=== PATIENT | female | born 1995 | race Caucasian/White ===

== ENCOUNTER → 2016-06-03 | Outpatient (CLI) | payer BC ==
--- NOTE | 2016-06-03 15:08 | Diagnostic Imaging Report ---
INDICATION: Dysmenorrhea. COMPARISON: None. DISCUSSION: Transabdominal and transvaginal sonographic evaluation of the pelvis was performed. The uterus is normal in echotexture and size measuring 8.0 x 5.4 x 4.0 cm. Normal endometrial thickness measuring 0.2 cm. The ovaries appear normal in echotexture and size bilaterally with normal color Doppler blood flow. The right ovary measures 2.5 x 1.7 x 2.3 cm. The left ovary measures 2.7 x 2.3 x 1.9 cm. No abnormal adnexal mass or fluid. IMPRESSION: 1. Unremarkable pelvic ultrasound. Dictated by: Dictated on workstation # [id number]
== END ==
LOC: RAD 14:18
PROVIDERS: ATTEND Nurse Practitioner
DX: N93.8 Other specified abnormal uterine and vaginal bleeding (principal)
CPT/HCPCS: 76830; 76856

== ENCOUNTER → 2018-09-04 | Outpatient (CLI) | payer OTHER ==
--- NOTE | 2018-09-04 08:49 | Diagnostic Imaging Report ---
PROCEDURE: US Gallbladder. TECHNIQUE: Multiple real-time grayscale images were obtained over the right upper quadrant in various projections. INDICATION: Recurrent nausea and vomiting and abdominal pain. Liver is normal in size at 14.6 cm. No discrete liver mass is identified. The portal vein is patent and shows normal direction of flow. Gallbladder is without stones or sludge. No wall thickening or biliary duct dilatation is seen. Visualized pancreas is unremarkable. Right kidney is without evidence of calculi or hydronephrosis. There is no ascites. IMPRESSION: Unremarkable gallbladder ultrasound. Dictated by: Dictated on workstation # [id number]
== END ==
LOC: RAD 06:59
PROVIDERS: ATTEND Nurse Practitioner Family
DX: R11.2 Nausea with vomiting, unspecified (principal); R10.84 Generalized abdominal pain
CPT/HCPCS: 76705

== ENCOUNTER → 2018-09-24 | Outpatient (CLI) | payer OTHER ==
[~2018-09-24] MED LIST: CATHETER FLUSH 10 ML SYR IV PRN
--- NOTE | 2018-09-24 10:30 | Diagnostic Imaging Report ---
CLINICAL INDICATION: Patient nausea, colic and abdominal pain. COMPARISON: Gallbladder ultrasound dated 09/04/2018. Procedure: The patient was administered 5.5 millicuries of technetium 99m Choletec. After 60 minutes of the images, one can of Ensure was drink followed by another 60 minutes of imaging. A nuclear medicine hepatobiliary scan with ejection fraction was performed. FINDINGS: There is prompt uptake and excretion of radiotracer by the liver. Activity is visible in the gallbladder by 10 minutes and the small bowel by 25 minutes. Ejection fraction of the gallbladder is calculated at 69% (normal >33%). The gallbladder visibly empties on the scans following the ingestion of Ensure. IMPRESSION: Normal hepatobiliary scan with normal gallbladder ejection fraction. Dictated by: Dictated on workstation # [id number]
== END ==
LOC: CARD 07:30
PROVIDERS: ATTEND Nurse Practitioner Family
DX: R10.84 Generalized abdominal pain (principal); R11.2 Nausea with vomiting, unspecified
CPT/HCPCS: 78227

== ENCOUNTER → 2019-01-01 | Outpatient (CLI) | payer OTHER ==
--- NOTE | 2019-01-01 11:16 | Diagnostic Imaging Report ---
PROCEDURE: US Thyroid. TECHNIQUE: Multiple real-time grayscale images were obtained of the thyroid in various projections. INDICATION: Abnormal thyroid labs. FINDINGS: Right lobe of the thyroid measures 4.8 x 1.1 x 1.7 cm and the left lobe measures 4.3 x 0.9 x 1.5 cm. Both lobes of thyroid are somewhat heterogeneous but no discrete thyroid mass is detected. Isthmus is 2 mm in thickness. IMPRESSION: Thyroid heterogeneity. No discrete thyroid mass is detected. Dictated by: Dictated on workstation # [id number]
== END ==
LOC: RAD 08:51
PROVIDERS: ATTEND Family Medicine
DX: E07.89 Other specified disorders of thyroid (principal); R94.6 Abnormal results of thyroid function studies
CPT/HCPCS: 76536

== ENCOUNTER → 2019-05-27 | Outpatient (CLI) | payer OTHER ==
[2019-05-27 15:18] LABS: BASOPHILS % (AUTO) 1 % (0-10); EOSINOPHILS % (AUTO) 1 % (0-10); HEMATOCRIT 41 % (35-52); HEMOGLOBIN 13.3 G/DL (11.5-16.0); LYMPHOCYTES % (AUTO) 25 % (12-44); MEAN CORPUSCULAR HEMOGLOBIN 27 PG (25-34); MEAN CORPUSCULAR HGB CONC 32 G/DL (32-36); MEAN CORPUSCULAR VOLUME 85 FL (80-99); MEAN PLATELET VOLUME 9.4 FL (7.4-10.4); MONOCYTES % (AUTO) 9 % (0-12); NEUTROPHILS # (AUTO) 8.4 X 10^3 (1.8-7.8); NEUTROPHILS % (AUTO) 64 % (42-75); PLATELET COUNT 432 10^3/uL (130-400); RED CELL DISTRIBUTION WIDTH 14.7 % (10.0-14.5); WHITE BLOOD COUNT 13.1 10^3/uL (4.3-11.0)
[2019-05-27 15:19] LABS: BASOPHILS # (AUTO) 0.1 10^3/uL (0.0-0.1); EOSINOPHILS # (AUTO) 0.2 10^3/uL (0.0-0.3); LYMPHOCYTES # (AUTO) 3.3 X 10^3 (1.0-4.0); MONOCYTES # (AUTO) 1.2 X 10^3 (0.0-1.0)
[2019-05-27 16:03] LABS: ALBUMIN 4.4 GM/DL (3.2-4.5); CHLORIDE 107 MMOL/L (98-107); POTASSIUM 3.9 MMOL/L (3.6-5.0); SODIUM 138 MMOL/L (135-145)
[2019-05-27 16:04] LABS: CALCIUM 8.8 MG/DL (8.5-10.1)
[2019-05-27 16:05] LABS: GLUCOSE 97 MG/DL (70-105); TOTAL PROTEIN 7.4 GM/DL (6.4-8.2)
[2019-05-27 16:06] LABS: CARBON DIOXIDE 21 MMOL/L (21-32)
[2019-05-27 16:07] LABS: BILIRUBIN,TOTAL 0.3 MG/DL (0.1-1.0)
[2019-05-27 16:09] LABS: ALKALINE PHOSPHATASE 106 U/L (40-136); CREATININE SERUM 0.72 MG/DL (0.60-1.30); GFR ESTIMATED > 60
[2019-05-27 16:10] LABS: BUN/CREATININE RATIO 11
[2019-05-27 16:12] LABS: ALANINE AMINOTRANSFERASE 13 U/L (0-55)
== END ==
LOC: LAB 14:57
PROVIDERS: ATTEND Nurse Practitioner Family
DX: R06.02 Shortness of breath (principal); L70.9 Acne, unspecified; F41.9 Anxiety disorder, unspecified; E53.8 Deficiency of other specified B group vitamins; N92.6 Irregular menstruation, unspecified; D50.8 Other iron deficiency anemias; E55.9 Vitamin D deficiency, unspecified; R79.89 Other specified abnormal findings of blood chemistry
CPT/HCPCS: 36415; 80053; 85025; 86738; 87430; 87635; 87804

== ENCOUNTER → 2019-05-27 | Outpatient (CLI) | payer OTHER | LOC: LABNPT 14:55 | PROVIDERS: ATTEND Family Medicine | DX: Z53.9 Procedure and treatment not carried out, unspecified reason (principal) ==

== ENCOUNTER → 2019-05-27 | Outpatient (CLI) | payer OTHER | LOC: LABNPT 13:20 | PROVIDERS: ATTEND Family Medicine | DX: R05 Cough (principal); R53.83 Other fatigue; R68.83 Chills (without fever); R07.81 Pleurodynia; R59.0 Localized enlarged lymph nodes | CPT/HCPCS: 87430; 87635; 87804 ==

== ENCOUNTER → 2020-06-26 | Outpatient (CLI) | payer OTHER ==
--- NOTE | 2020-06-26 09:41 | Diagnostic Imaging Report ---
INDICATION: Right foot injury. Patient has history of right 5th metatarsal fracture 1 year earlier. No prior studies are available for comparison. There appears to be an old healed fracture of the 5th metatarsal. No acute fracture is seen. Midfoot and hindfoot are unremarkable. Phalanges are intact. IMPRESSION: No acute bony abnormality is detected. Dictated by: Dictated on workstation # [id number]
== END ==
LOC: RAD 09:07
PROVIDERS: ATTEND Nurse Practitioner Family
DX: S99.921A Unspecified injury of right foot, initial encounter (principal); X58.XXXA Exposure to other specified factors, initial encounter
CPT/HCPCS: 73630

== ENCOUNTER → 2020-08-01 | Outpatient (CLI) | payer OTHER ==
--- NOTE | 2020-08-01 11:56 | Diagnostic Imaging Report ---
EXAMINATION: US Abdomen complete. TECHNIQUE: Multiple real-time grayscale images were obtained over the right upper quadrant in various projections. HISTORY: Abdominal Pain. COMPARISON: None available. FINDINGS: Pancreas: The visualized portions of the pancreas are normal. Liver: The liver is normal in echogenicity and contour. No focal lesions are seen. The portal vein is patent with hepatopetal flow. Gallbladder and biliary tree: Gallbladder is normal without wall thickening, pericholecystic fluid, or sonographic Guerra sign. There is no biliary ductal dilation. The common duct measures 0.5 cm. Kidneys: The right kidney is normal without hydronephrosis. The left kidney is normal without hydronephrosis. Spleen: The spleen is normal. Aorta and IVC: The visualized aorta and inferior vena cava are normal. Fluid: No ascites is seen. IMPRESSION: 1. Unremarkable abdominal ultrasound. Dictated by: Dictated on workstation # [id number]
--- NOTE | 2020-08-01 18:14 | Diagnostic Imaging Report ---
PROCEDURE: US PELVIC (NON OB) TECHNIQUE: Multiple real-time grayscale images were obtained over the pelvis in various projections transabdominally. INDICATION: Pelvic pain with heavy periods. COMPARISON: Pelvic ultrasound of 06/03/2016 FINDINGS: The uterus measures 9.9 x 4.4 x 5.3 cm. The myometrium is normal in echogenicity without discrete mass. The endometrium measures up to 0.4 cm where visualized, and is normal in echogenicity. The right ovary measures 2.9 x 2.2 x 1.7 cm. The left ovary measures 5.5 x 4.8 x 5.8 cm. Both ovaries are physiologic in appearance, and on the left, there is a 4.3 x 4.2 x 4.9 cm anechoic cyst present. Blood flow is seen in both ovaries on color doppler imaging. No suspicious adnexal mass or fluid collection. No free pelvic fluid. IMPRESSION: 1. In the left ovary, there is a 4.9 cm anechoic cystic structure that is most likely a dominant follicle. 2. Normal appearance of the uterus and endometrium. Dictated by: Dictated on workstation # [id number]
== END ==
LOC: RAD 08:55
PROVIDERS: ATTEND Nurse Practitioner Family
DX: N83.202 Unspecified ovarian cyst, left side (principal)
CPT/HCPCS: 76700; 76856

== ENCOUNTER → 2020-10-10 | Outpatient (CLI) | payer OTHER ==
--- NOTE | 2020-10-10 12:00 | Diagnostic Imaging Report ---
PROCEDURE: US Non-ob pelvis comp/trans. TECHNIQUE: Multiple realtime grayscale images were obtained of the pelvis in various projections endovaginally. Transabdominal imaging was also performed. INDICATION: Endometriosis, pelvic pain. COMPARISON: 08/01/2020. FINDINGS: The uterus measures 8 x 4.7 x 5.3 cm and appears grossly unremarkable. The endometrium is nonthickened at 7 mm. The right ovary measures 2.7 x 2.3 x 1.7 cm. There is a collapsing 11 mm follicle on the right ovary. Small amount of free fluid is in the cul-de-sac. The left ovary measures 3 x 1.2 x 2.8 cm. There is no mass or torsion. The adnexa are grossly normal. IMPRESSION: Physiologic free fluid in the cul-de-sac with involuting follicle right ovary. Otherwise unremarkable pelvic sonogram. Dictated by: Dictated on workstation # [id number]
== END ==
LOC: RAD 09:34
PROVIDERS: ATTEND Nurse Practitioner Family
DX: N80.9 Endometriosis, unspecified (principal)
CPT/HCPCS: 76830; 76856

== ENCOUNTER 2020-11-14 05:28 | Outpatient (CLI) | payer OTHER ==
[~2020-11-14] VITALS: Ht 162.6 cm; Wt 86.1 kg
[2020-11-14] MEDS ORDERED: MULT-1136 PO (09:45)
[2020-11-14] MEDS ORDERED: ERGO1250 PO (09:45)
[2020-11-14] MEDS ORDERED: NORE5TAB2 PO (09:45)
[2020-11-14] MEDS ORDERED: LEVO25CA4 PO (09:45)
[2020-11-14] MEDS ORDERED: LORA-1025 PO (09:45)
== END 2020-11-14 11:09 | disposition home or self-care (01) ==
LOC: PREOP 05:28
PROVIDERS: ATTEND Obstetrics & Gynecology
DX: Z01.818 Encounter for other preprocedural examination (principal)

== ENCOUNTER 2020-11-21 07:34 | Day surgery (SDC) | payer OTHER ==
[~2020-11-21] VITALS: Ht 162.6 cm; Wt 95.3 kg
[2020-11-21] VITALS (10 sets, daily range): BP systolic 90–117; BP diastolic 52–69
[~2020-11-21 07:34] MED LIST changes: -CATHETER FLUSH 10 ML SYR IV PRN; +ERGO1250 PO; +LEVO25CA4 PO; +LORA-1025 PO; +MULT-1136 PO; +NORE5TAB2 PO
[2020-11-21] MEDS ORDERED: BUPIVACAINE 0.25% 30 ML (SENSORCAINE) VIAL ONE (08:04)
[2020-11-21] MEDS ORDERED: LIDOCAINE/EPI 1%-1:100,000 (XYLOCAINE) 20ML ONE (08:08)
[2020-11-21] MEDS ORDERED: LIDOCAINE PF 2% 5 ML (XYLOCAINE) VIAL ONE (08:09)
[2020-11-21] MEDS ORDERED: NEOSTIGMINE 3 MG/3 ML VIAL ONE (08:09)
[2020-11-21] MEDS ORDERED: GLYCOPYRROLATE 0.2 MG/ML (ROBINUL) 2 ML VIAL ONE (08:09)
[2020-11-21] MEDS ORDERED: proPOfol 200 MG/20 ML (DIPRIVAN) VIAL IV ONE (08:09)
[2020-11-21] MEDS ORDERED: ONDANSETRON 4 MG/2 ML (SDV) Z0FRAN ONE (08:09)
[2020-11-21] MEDS ORDERED: MIDAZOLAM 2 MG/2 ML (VERSED) VIAL ONE (08:09)
[2020-11-21] MEDS ORDERED: fentaNYL INJ 100 MCG/2 ML AMP ONE (08:09)
[2020-11-21] MEDS ORDERED: ROCURONIUM 10 MG/ML 5 ML SYRINGE IV ONE (08:09)
[2020-11-21 08:12] LABS: CLARITY,URINE CLEAR; COLOR,URINE YELLOW; GLUCOSE, URINE (UA) NEGATIVE (NEGATIVE); KETONES,URINE NEGATIVE (NEGATIVE); LEUKOCYTE ESTERASE ,URINE NEGATIVE (NEGATIVE); NITRITE,URINE NEGATIVE (NEGATIVE); PROTEIN,URINE 1+ (NEGATIVE)
--- NOTE | 2020-11-21 08:12 | History & Physical-Surgical ---
HPO-Surgical History of Present Illness Chief Complaint: treatment. chronic pelvic pain, R ovarian cyst, endometriois Long history of chronic pelvic pain. Not resolved with combiniation hormonal manipulation. Some relief with progesterone, but doesn't desire fertility and desires definitive treatment. Diagnosis/Surgical Indication: CHRONIC PELVIC PAIN, ENDOMETRIOSIS Procedure: RATH, BILATERAL SALPINGECTOMY, OVARIAN CYSTECTOMY, RESECTION OF ENDOMETRIOSIS, POSSIBLE APPENDECTOMY, OTHER INDICATED PROCEDURES Date of Surgery: Nov 21, 2020 Weight (Pounds): 210 Height (Feet): 5 Height (Inches): 4 Allergies and Home Medications Allergies Coded Allergies: Penicillins (Unverified Allergy, Intermediate, 11/14/20) PT. STATES SHE GETS GASTROINTESTINAL ISSUES Patient Home Medication List Home Medication List Reviewed: Yes Ergocalciferol (Vitamin D2) (Vitamin D2) 1,250 Mcg Capsule, 1,250 MCG PO DAILY, (Reported) Entered as Reported by: CLIVE SUMNER on 11/14/20 09 Levothyroxine Sodium (Levothyroxine) 25 Mcg Capsule, 25 MCG PO DAILY, (Reported) Entered as Reported by: CLIVE SUMNER on 11/14/20 0945 Loratadine (Allergy Relief) 10 Mg Tablet, 10 MG PO DAILY PRN, (Reported) Entered as Reported by: CLIVE SUMNER on 11/14/20 09 Multivitamin (Multivitamin) 1 Each Tablet, 1 EACH PO DAILY, (Reported) Entered as Reported by: CLIVE SUMNER on 11/14/20944 Norethindrone Acetate (Aygestin) 5 Mg Tablet, 5 MG PO DAILY, (Reported) Entered as Reported by: CLIVE SUMNER on 11/14/20 09 Past Dkqqyxa-Kljwjd-Bosviy Hx Patient Social History Marrital Status: domestic partnership Number of Children: 0 Employed/Student: employed Smoking Status: Former Smoker 2nd Hand Smoke Exposure: No Recent Hopitalizations: No Social History no male partners Have you traveled recently?: No Alcohol Use?: No Seasonal Allergies Seasonal Allergies: Yes (USES OTC ALLERGY MEDICATION) Surgeries Yes (LEFT SHOULDER SURGERY) Orthopedic Respiratory No Cardiovascular No Neurological Yes (HISTORY OF MIGRAINES) Headaches /Migraines Reproductive System : No Hx Reproductive Disorders: Yes (endometriosis) Sexually Transmitted Disease: No HIV/AIDS: No Female Reproductive Disorders: Endometriosis, Ovarian Cyst Genitourinary Yes ( A CHILD) UTI-Chronic Gastrointestinal Yes Gastroesophageal Reflux Musculoskeletal No Endocrine History of Endocrine Disorders: Yes Endocrine Disorders: Hypothyroidsim HEENT History of HEENT Disorders: Yes (WEARS CONTACTS & GLASSES) Hearing Impairment: Denies Cancer No Psychosocial History of Psychiatric Problem: Yes Behavioral Health Disorders: Anxiety, Depression Integumentary History of Skin or Integumenta: No Blood Transfusions History of Blood Disorders: No Adverse Reaction to a Blood Tr: No (N/A) Exam Vital Signs Capillary Refill : General Appearance: Alert HEENT: Atraumatic Respiratory: Clear to Auscultation, Normal Air Movement Abdominal: Other (pelvic exam deferred to surgery) Assessment/Plan Assessment and Plan 1. Chronic pelvic pain 2. Endometriosis 3. possible right ovarian cyst (evidence of rupture of previous cyst on US) Plan - medical control has been somewhat satisfactory, but not complete and patient desires definitive treatment. Will plan RaTH, bilateral salpingectomy, ovarian cystectomy, resection of endometriosis, possible appendectomy, OIP on 11/21/2020 Risks of bleeding, infection, injury to bowel, bladder and ureter has been explained. She understands that once her uterus has been removed, she will be unable to bear children. Will use prophylactic antibiotics and SCDs. NPO after midnight. Admission Diagnosis outpatient surgery Admission Status: Other (Same Day Surgery) ZANDER WILSON DO Nov 21, 2020 08:12
[2020-11-21] MEDS ORDERED: ceFAZolin 2 GM IV Premixed 50 ML IV ONE (08:15)
[2020-11-21] MEDS ORDERED: metroNIDAZOLE 500MG/100ML IVPB 100 ML IV ONE (08:15)
[2020-11-21 08:28] LABS: BASOPHILS # (AUTO) 0.1 10^3/uL (0.0-0.1); BASOPHILS % (AUTO) 1 % (0-10); EOSINOPHILS # (AUTO) 0.3 10^3/uL (0.0-0.3); EOSINOPHILS % (AUTO) 3 % (0-10); HEMATOCRIT 42 % (35-52); HEMOGLOBIN 13.5 g/dL (11.5-16.0); LYMPHOCYTES # (AUTO) 2.7 10^3/uL (1.0-4.0); LYMPHOCYTES % (AUTO) 26 % (12-44); MEAN CORPUSCULAR HEMOGLOBIN 28 pg (25-34); MEAN CORPUSCULAR HGB CONC 32 g/dL (32-36); MEAN CORPUSCULAR VOLUME 88 fL (80-99); MEAN PLATELET VOLUME 9.3 fL (9.0-12.2); MONOCYTES # (AUTO) 0.8 10^3/uL (0.0-1.0); MONOCYTES % (AUTO) 8 % (0-12); NEUTROPHILS # (AUTO) 6.4 10^3/uL (1.8-7.8); NEUTROPHILS % (AUTO) 62 % (42-75); PLATELET COUNT 412 10^3/uL (130-400); WHITE BLOOD COUNT 10.3 10^3/uL (4.3-11.0)
[2020-11-21 08:29] LABS: BACTERIA,URINE MODERATE /HPF; BILIRUBIN,URINE 2+ (NEGATIVE); RBC,URINE 0-2 /HPF; SQUAMOUS EPITHELIAL CELL,UR 25-50 /HPF
[2020-11-21] MEDS: LACTATED RINGERS 1,000 ML IV PRN ×2 (08:50→09:49)
[2020-11-21 09:20] LABS: CLARITY,URINE CLEAR; COLOR,URINE YELLOW; GLUCOSE, URINE (UA) NEGATIVE (NEGATIVE); KETONES,URINE NEGATIVE (NEGATIVE); LEUKOCYTE ESTERASE ,URINE NEGATIVE (NEGATIVE); NITRITE,URINE NEGATIVE (NEGATIVE); PROTEIN,URINE TRACE (NEGATIVE)
[2020-11-21 09:32] LABS: BACTERIA,URINE FEW /HPF; BILIRUBIN,URINE 1+ (NEGATIVE); RBC,URINE RARE /HPF
[2020-11-21] MEDS ORDERED: HYDROmorphone 2 MG/ML VIAL (DILAUDID) ONE (10:04)
[2020-11-21] MEDS ORDERED: SEVOFLURANE (ULTANE) 15 ML INHAL SOLN ONE ×2 (10:07→10:20)
[2020-11-21] MEDS ORDERED: KETOROLAC 30 MG/ML VIAL ONE (10:22)
[2020-11-21] MEDS ORDERED: KETOROLAC 30 MG/ML VIAL IVP ONE (10:30)
[2020-11-21] MEDS ORDERED: D5 LR IV SOLUTION 1,000 ML IV SCH (10:30)
[2020-11-21] MEDS ORDERED: ONDANSETRON 4 MG/2 ML (SDV) Z0FRAN IVP PRN ×2 (10:30→10:45)
[2020-11-21] MEDS ORDERED: ACETAMINOPHEN 500 MG TAB (TYLENOL) PO PRN (10:30)
--- NOTE | 2020-11-21 10:31 | Discharge Inst-Women's Service ---
Discharge Inst-Women's Serv Depart Medication/Instructions New, Converted or Re-Newed RX: Transmitted to Pharmacy Instructions no lifting over 25 lbs x 2 weeks no driving for 5 days Final Diagnosis endometriosis, left endometrioma (ovary) chronic pelvic pain Problems Reviewed?: Yes Consults/Follow Up Additional Follow Up: Yes (1-2 week for incision check) Activity Activity: Activity as Tolerated (see above) Driving Instructions: No Driving for 1 Week (5 days) NO SMOKING: NO SMOKING Nothing Inside Vagina: No Douching Diet Discharge Diet: No Restrictions Symptoms to Report to : Bleeding Excessive, Pain Increased, Fever Over 101 Degrees F, Vaginal Bleeding Increase, Cramps in Feet or Legs, Vaginal Discharge Foul For Any Problems or Questions: Contact Your Physician Skin/Wound Care Infection Signs and Symptoms: Increased Redness, Foul Odor of Wound, Increased Drainage, Skin Itchy or Has a Rash, Increased Swelling, Temperature Above 101 F Operative Area Clean and Dry: You May Remove Bandage (remove in 72 hours) Stitches/Jamaal/Dermabond: Dermabond Bathing Instructions: ZANDER Gonsalez DO Nov 21, 2020 10:31
[2020-11-21] MEDS ORDERED: IBUP-1780 PO (10:35)
[2020-11-21] MEDS ORDERED: ACET-93 PO (10:35)
[2020-11-21] MEDS ORDERED: ELAG150T PO (10:35)
[2020-11-21] MEDS ORDERED: OXC5T PO (10:35)
[2020-11-21] MEDS ORDERED: NORE5TAB2 PO (10:36)
--- NOTE | 2020-11-21 10:38 | Operative Report ---
Operative Report Date of Procedure/Surgery Nov 21, 2020 Surgeon (s) ZANDER WILSON DO Telephonic Nurse (s): NA Post-Operative Diagnosis endometriosis left ovarian endometrioma and ovarian cyst right tubal cyst uterine fibroid Procedure Performed robotic patricia salpingectomy fulgeration of endometriosis myolysis of fibroid Description of Procedure Anesthesia Type: General Estimated blood loss (mL): minimal Specimen(s) collected/removed bilateral tubes, uterine fibroid Description of the Procedure The patient was seen for a consultation and preop visit and it was discussed to do a hysterectomy per her request for uncontrolled endometriosis. However since that time she has opted to not have the hysterectomy unless there was severe endometriosis noted. We had a discussion in preop discussing a bilateral tyshawn pingectomy to prevent further endometriosis. Also discussed resection or fulguration of endometriosis and removal of any ovarian cyst or adhesions that were seen. She requested that the hysterectomy was done if there was extensive endometriosis, but to just proceed with a salpingectomy and other indicated procedures but leave the hysterectomy to a possible later date if needed. With informed consent the patient was taken to the operating room where general anesthetic was found to be adequate. She was then prepped and draped in the usual sterile fashion in the dorsal lithotomy position. A Slade catheter was placed in the bladder. Speculum was placed in the vagina and the cervix was grasped with a tenaculum. A stitch was placed at 12:00. The cervix was then gently dilated to allow insertion of a uterine sound. The uterus sounded to 8 cm. A Nicole uterine manipulator was now placed. This was secured with the stitch placed at 12:00. This was a 2.5 cm Nicole. Attention was turned to the abdomen where the supraumbilical area was injected with 0.25% Marcaine. I then made an 8 mm skin incision. The varies needle was then inserted. But I cannot assure intra-abdominal placement. For this reason. I made an incision in the left upper quadrant. And then inserted a varies needle. Intra-abdominal placement was confirmed with a saline drop test and a drop in the pressure. The abdomen was insufflated to a maximum pressure of 15 mmHg. A trocar was now inserted. And the camera was inserted ensuring intra-abdominal placement. I then placed a 12 mm trocar in the supraumbilical area. Two additional 8 mm trochars were placed lateral to the midline trocar. These were approximately 15 cm lateral. The patient was now placed into steep Trendelenburg. A survey of the abdomen and the pelvis revealed the above-mentioned findings. I then did a bilateral salpingectomy utilizing the LigaSure and the gilma. The tubes were then removed through the trocar and sent for pathology. The patient had an endometrioma noted on the left ovary. This appeared to have ruptured when she was seen in the emergency room in September. There was still some endometrioma noted on the ovary so I cauterized this. It was very flush to the ovarian surface so I was not able to excise it. There was also a small corpus luteal cyst on this left ovary that was fulgurated. There were two areas in the posterior cul-de-sac that were also fulgurated. They were small and one was active the other appeared to be scarred endometriosis. The pelvis was now irrigated. A survey of the abdomen and pelvis revealed no active bleeding The instruments were now removed from the abdomen and the gas was suctioned from the abdomen. The skin incisions were closed with 4-0 Monocryl in a subcuticular fashion. Surgical glue was placed and bandages were placed. The personal injury legal assistant removed with a roommate from the vagina. There was minimal active bleeding noted. The suture was cut. The patient was now awakened and taken to the recovery room in a stable condition. Sponge lap needle and instrument counts were correct x2. Findings of the Procedure mild endometriosis left endometrioma left ovarian cyst right tubal cyst Allergies and Home Medications Allergies Coded Allergies: Penicillins (Unverified Allergy, Intermediate, 11/14/20) PT. STATES SHE GETS GASTROINTESTINAL ISSUES Patient Home Medication List Home Medication List Reviewed: Yes Acetaminophen (Acetaminophen) 500 Mg Tablet, 1,000 MG PO Q8H PRN for PAIN-MILD (1-4) Prescribed by: ZANDER WILSON on 11/21/20 1035 Elagolix Sodium (Orilissa) 150 Mg Tablet, 150 MG PO DAILY Prescribed by: ZANDER WILSON on 11/21/20 1033 Ergocalciferol (Vitamin D2) (Vitamin D2) 1,250 Mcg Capsule, 1,250 MCG PO DAILY, (Reported) Entered as Reported by: CLIVE SUMNER on 11/14/20 0918 Ibuprofen (Ibuprofen) 800 Mg Tablet, 600 MG PO Q6HR Prescribed by: ZANDER WILSON on 11/21/20 103 Levothyroxine Sodium (Levothyroxine) 25 Mcg Capsule, 25 MCG PO DAILY, (Reported) Entered as Reported by: CLIVE SUMNER on 11/14/20944 Last Action: Last Taken Edited Loratadine (Allergy Relief) 10 Mg Tablet, 10 MG PO DAILY PRN, (Reported) Entered as Reported by: CLIVE SUMNER on 11/14/20944 Multivitamin (Multivitamin) 1 Each Tablet, 1 EACH PO DAILY, (Reported) Entered as Reported by: CLIVE SUMNER on 11/14/20944 Norethindrone Acetate (Aygestin) 5 Mg Tablet, 5 MG PO DAILY Prescribed by: ZANDER WILSON on 11/21/20 103 Oxycodone Hcl (Oxyir Tablet) 5 Mg Tab, 5-10 MG PO Q4H PRN for PAIN-SEVERE (8-10) Prescribed by: ZANDER WILSON on 11/21/201034 ZANDER WILSON DO Nov 21, 2020 10:38
[2020-11-21] MEDS ORDERED: morphine INJ 10 MG/ML 1ML (SYR OR VIAL) IVP ONE (10:45)
[2020-11-21] MEDS ORDERED: HYDROmorphone 2 MG/ML VIAL (DILAUDID) IV ONE (10:45)
--- NOTE | 2020-11-21 11:09 | Anesthesia-General Post-Op ---
General Patient Condition Mental Status/LOC: Same as Preop Cardiovascular: Satisfactory Nausea/Vomiting: Absent Respiratory: Satisfactory Pain: Controlled Complications: Absent Post Op Complications Complications None Follow Up Care/Instructions Patient Instructions None needed. Anesthesia/Patient Condition Patient Condition Patient is doing well, no complaints, stable vital signs, no apparent adverse anesthesia problems. TAI SIGALA DO Nov 21, 2020 11:09
[2020-11-21] MEDS ORDERED: ACETAMINOPHEN 500 MG TAB (TYLENOL) ONE (11:43)
[2020-11-21] MEDS ORDERED: IBUPROFEN 800 MG (MOTRIN) TAB PO SCH ×2 (12:00)
== END 2020-11-21 13:15 | disposition home or self-care (01) ==
LOC: SDC 07:34
PROVIDERS: ATTEND Obstetrics & Gynecology
DX: D25.9 Leiomyoma of uterus, unspecified (principal); N80.1 Endometriosis of ovary; N80.9 Endometriosis, unspecified; N83.202 Unspecified ovarian cyst, left side; N83.8 Other noninflammatory disorders of ovary, fallopian tube and broad ligament; E03.9 Hypothyroidism, unspecified; E66.9 Obesity, unspecified; N39.0 Urinary tract infection, site not specified; K21.9 Gastro-esophageal reflux disease without esophagitis; G43.909 Migraine, unspecified, not intractable, without status migrainosus; F41.9 Anxiety disorder, unspecified; F32.9 Major depressive disorder, single episode, unspecified; F17.290 Nicotine dependence, other tobacco product, uncomplicated; Z79.890 Hormone replacement therapy; Z79.899 Other long term (current) drug therapy; Z79.891 Long term (current) use of opiate analgesic; Z68.33 Body mass index [BMI] 33.0-33.9, adult
CPT/HCPCS: 36415; 81000; 84703; 85025; 86850; 86900; 86901; 87081; 87088